=== PATIENT | female | born 1990 | race Two or more races ===

== ENCOUNTER 2020-09-18 14:00 | Inpatient (IN) | payer OTHER ==
[~2020-09-18] VITALS: Ht 157.5 cm; Wt 3.2 kg
[2020-09-27] MEDS ORDERED: PRENATAL TABLE1 EAC1 PO (06:22)
[2020-09-27] MEDS ORDERED: NIFEREX TABLET1 EACH PO (06:23)
[2020-09-27] MEDS ORDERED: ADULT LOW DOSE81 M1 PO (06:24)
== END 2020-09-30 13:01 | disposition home or self-care (01) | DRG 788 ==
LOC: LDR 09-27 04:59 → OB/GYN 09-27 04:59 → O/R 09-27 17:12 → OB/GYN 09-27 17:29 → LDR 09-28 14:00 → OB/GYN 09-30 13:01
PROVIDERS: ADMIT Specialist; ATTEND Specialist
PROC: 10907ZC Drainage of Amniotic Fluid, Therapeutic from Products of Conception, Via Natural or Artificial Opening (ICD-10-PCS; 2020-09-27)
PROC: 3E033VJ Introduction of Other Hormone into Peripheral Vein, Percutaneous Approach (ICD-10-PCS; 2020-09-27)
PROC: 4A1HXFZ Monitoring of Products of Conception, Cardiac Rhythm, External Approach (ICD-10-PCS; 2020-09-27)
PROC: 10D00Z1 Extraction of Products of Conception, Low, Open Approach (ICD-10-PCS; principal; 2020-09-27 15:00)
DX: O33.8 Maternal care for disproportion of other origin (principal); O99.824 Streptococcus B carrier state complicating childbirth; Z3A.39 39 weeks gestation of pregnancy; Z37.0 Single live birth; Z20.822 Contact with and (suspected) exposure to COVID-19